=== PATIENT | male | born 1930 | race Caucasian/White ===

== ENCOUNTER 2016-09-03 23:43 | Inpatient (IN) | payer MEDICARE, MEDICAID ==
[~2016-09-03] VITALS: Ht 170.2 cm; Wt 87.6 kg
[2016-09-04 00:07] LABS: TEMPERATURE, FAHRENHEIT, BG 98.6 FAHREN (96.0-98.6)
[2016-09-04] MEDS ORDERED: ASPI81TA2 PO (00:13)
[2016-09-04] MEDS ORDERED: OLAN5TAB2 PO (00:13)
[2016-09-04] MEDS ORDERED: ZOLP10 PO (00:13)
[2016-09-04] MEDS ORDERED: BIFI1CAP PO (00:13)
[2016-09-04] MEDS ORDERED: METO-325 PO (00:13)
[2016-09-04] MEDS ORDERED: BUDE10.2 IH (00:13)
[2016-09-04] MEDS ORDERED: MOME17N NASAL (00:13)
[2016-09-04] MEDS ORDERED: ATOR40TA28 PO (00:13)
[2016-09-04] MEDS ORDERED: PANT40TA25 PO (00:13)
[2016-09-04] MEDS ORDERED: LACT30L PO (00:13)
[2016-09-04] MEDS ORDERED: PRED10 PO (00:13)
[2016-09-04] MEDS ORDERED: HYDR-3971 PO (00:13)
[2016-09-04] MEDS ORDERED: IPRNEB IH (00:13)
[2016-09-04] MEDS ORDERED: AMLO-512 PO (00:13)
[2016-09-04] MEDS ORDERED: MIRT15 PO (00:13)
[2016-09-04] MEDS ORDERED: BUME1TAB30 PO (00:13)
[2016-09-04] MEDS ORDERED: AZITH500IV IV (00:13)
[2016-09-04] MEDS ORDERED: POTA10TA14 PO (00:13)
[2016-09-04] MEDS ORDERED: PRAM15 PO (00:13)
[2016-09-04] MEDS ORDERED: PRED20 PO (00:13)
[2016-09-04] MEDS ORDERED: AUD NEB (00:13)
[2016-09-04] MEDS ORDERED: ALBUTEROL SULFATE 5 MG/ML 20 ML NEB SOLN [BULK] NEB ONE (00:15)
[2016-09-04] MEDS ORDERED: IPRATROPIUM BROMIDE 0.5 MG/2.5 ML NEB SOLUTION NEB ONE (00:15)
[2016-09-04] MEDS ORDERED: FUROSEMIDE 40 MG/4 ML VIAL IVP ONE (00:15)
[2016-09-04 00:21] LABS: ABG A-A DIFF O2 616.2 mmHg (10-20.0); ABG BASE EXCESS -0.8 mmol/L (-2.0-3.0); ABG HCO3 23.4 mmol/L (22.0-26.0); ABG OXYHEMOGLOBIN 74.4 % (94.0-100.0); ABG PCO2 50 mmHg (35-45); ABG PH 7.321 (7.35-7.450)
[2016-09-04 00:26] LABS: ALLEN TEST, BLOOD GAS Positive
[2016-09-04 00:27] LABS: IPAP, BG 12 cm H2O
[2016-09-04] MEDS ORDERED: 0.9% SODIUM CHLORIDE 5 ML NEB SOLUTION NEB ONE (00:37)
[2016-09-04 01:16] LABS: ALANINE AMINOTRANSFERASE 46 U/L (12-78); ALBUMIN 2.9 g/dL (3.4-5.0); ANION GAP 10 mmol/L (8-16); ASPARTATE AMINOTRANSFERASE 32 U/L (15-37); BILIRUBIN,TOTAL 0.7 mg/dL (0.1-1.0); CALCIUM, TOTAL 7.9 mg/dL (8.8-10.5); CARBON DIOXIDE 27 mmol/L (22-29); CHLORIDE 104 mmol/L (98-107); CREATININE 3.01 mg/dL (0.60-1.30); GLOMERULAR FILTR. RATE CALC 20 mL/min (>60); POTASSIUM 4.9 mmol/L (3.5-5.1); SODIUM SERUM 141 mmol/L (136-145); TOTAL PROTEIN, SERUM 5.7 g/dL (6.4-8.2)
[2016-09-04 01:24] LABS: EOSINOPHILS % (AUTO) 0 % (1.0-6.0); HEMATOCRIT 22.8 % (41-53); HEMOGLOBIN 7.4 g/dL (13.5-17.5); LYMPHOCYTES # (AUTO) 0.1 K/uL (1.0-4.8); LYMPHOCYTES % (AUTO) 0.7 % (22.0-44.0); MEAN CORPUSCULAR HEMOGLOBIN 28.8 pg (26.0-34.0); MEAN CORPUSCULAR HGB CONC 32.6 G/dL (31.0-37.0); MEAN CORPUSCULAR VOLUME 88 fL (80-100); MONOCYTES # (AUTO) 0.6 K/uL (0.1-1.0); PLATELET COUNT (AUTO) 134 K/uL (150-450); RED BLOOD CELL COUNT(AUTO) 2.58 MIL/uL (4.50-5.90); RED CELL DISTRIBUTION WIDTH 16.7 % (11.5-14.5); WHITE BLOOD COUNT (AUTO) 19.7 K/uL (4.5-11.0)
[2016-09-04 01:29] LABS: NEUTROPHILS % (AUTO) 96.3 % (40.0-70.0)
[2016-09-04 01:36] LABS: LACTIC ACID 2.4 mmol/L (0.4-2.0); UREA NITROGEN, BLOOD 131 mg/dL (7-18)
[2016-09-04] MEDS ORDERED: ONDANSETRON HCL 4 MG/2 ML VIAL IVP PRN ×2 (02:15→03:15)
[2016-09-04] MEDS ORDERED: ACETAMINOPHEN 325 MG TABLET PO PRN ×2 (02:15→03:15)
[2016-09-04] MEDS ORDERED: 0.9% SODIUM CHLORIDE 10 ML SYRINGE IVP PRN ×2 (02:15→03:15)
[2016-09-04 02:21] LABS: B-TYPE NATRIURETIC PEPTIDE 241 pg/mL (0-100)
[2016-09-04] MEDS ORDERED: ZOLPIDEM TARTRATE 10 MG TABLET PO PRN (03:00)
[2016-09-04] MEDS ORDERED: OLANZapine 5 MG TABLET PO PRN (03:00)
[2016-09-04] MEDS ORDERED: LACTULOSE 20 GM/30 ML SOLUTION UDCUP PO PRN (03:00)
[2016-09-04] MEDS: BUDESONIDE/FORMOTEROL FUMARATE 160-4.5 MCG/PUFF 6.9 GM INHALER IH SCH ×3 (03:00→21:24)
[2016-09-04] MEDS ORDERED: ALBUTEROL SULFATE 2.5 MG/0.5 ML NEB SOLUTION NEB PRN (03:15)
[2016-09-04] MEDS ORDERED: MAGNESIUM HYDROXIDE SUSPENSION 30 ML UDCUP PO PRN (03:15)
[2016-09-04] MEDS ORDERED: OxyCODONE HCL/ACETAMINOPHEN 5-325 MG TABLET PO PRN ×2 (03:15)
[2016-09-04] MEDS ORDERED: IPRATROPIUM BROMIDE 0.5 MG/2.5 ML NEB SOLUTION NEB PRN (03:15)
[2016-09-04 03:20] LABS: REFLEX LACTIC ACID? YES YES
[2016-09-04] MEDS ORDERED: ALBUMIN HUMAN 25%-25GM/100ML 100 ML IV ONE (03:30)
[2016-09-04] MEDS ORDERED: VANCOMYCIN HCL 1 GM/D5% WATER 200 ML IV PRN (03:30)
[2016-09-04] MEDS: MethylPREDNISolone SOD SUCC 125 MG/2 ML VIAL IVP SCH ×3 (03:39→16:23)
[2016-09-04 03:43] LABS: APPEARANCE,URINE CLEAR (CLEAR); GLUCOSE, URINE (UA) NEGATIVE (NEGATIVE); KETONES,URINE NEGATIVE (NEGATIVE); LEUKOCYTE ESTERASE ,URINE NEGATIVE (NEGATIVE); OCCULT BLOOD,URINE NEGATIVE (NEGATIVE); PROTEIN,URINE TRACE (NEGATIVE)
[2016-09-04] MEDS ORDERED: VANCOMYCIN HCL 1.5 GM in DEXTROSE 5%-WATER 250 ML IV ONE (04:00)
[2016-09-04] MEDS ORDERED: HALOPERIDOL LACTATE 5 MG/ML VIAL IM ONE (05:45)
[2016-09-04] MEDS: PIPERACILLIN SODIUM/TAZOBACTAM 2.25 GM in DEXTROSE 5%-WATER 50 ML IV SCH ×3 (06:07→18:46)
[2016-09-04] MEDS: ALBUTEROL SULFATE 2.5 MG/0.5 ML NEB SOLUTION NEB SCH ×5 (07:34→23:48)
[2016-09-04] MEDS: IPRATROPIUM BROMIDE 0.5 MG/2.5 ML NEB SOLUTION NEB SCH ×5 (07:34→23:47)
[2016-09-04 08:28] VITALS: BP 146/63
[2016-09-04] MEDS: AmLODIPine BESYLATE 10 MG TABLET PO SCH (09:00)
[2016-09-04] MEDS: PANTOPRAZOLE SODIUM 40 MG/VIAL IVP SCH (10:12)
[2016-09-04] MEDS: ASPIRIN 81 MG CHEWABLE TABLET PO SCH (10:12)
[2016-09-04] MEDS: BUMETANIDE 1 MG TABLET PO SCH (10:12)
[2016-09-04] MEDS: METOPROLOL SUCCINATE 50 MG ER TABLET PO SCH (10:13)
[2016-09-04] MEDS: ATORVASTATIN CALCIUM 40 MG TABLET PO SCH (10:13)
[2016-09-04] MEDS: DOCUSATE SODIUM 100 MG CAPSULE PO SCH ×2 (10:13→21:21)
[2016-09-04] MEDS ORDERED: SODIUM CHLORIDE 0.9% 100 ML ONE (11:37)
[2016-09-04 12:07] VITALS: BP 127/62
[2016-09-04] MEDS ORDERED: INFLUENZA VIRUS VACCINE QVS 2016-17 (3YR+)/PF 60 MCG/0.5 ML SYRINGE IM ONE (15:15)
[2016-09-04 15:41] VITALS: BP 150/57
[2016-09-04 17:58] LABS: INFLUENZA TYPE B NEGATIVE FOR TYPE B (NEGATIVE)
[2016-09-04 19:49] VITALS: BP 156/64
[2016-09-04 20:28] LABS: INR 1.1 (0.9-1.1); PROTHROMBIN TIME 12.1 SEC (9.4-11.6)
[2016-09-04] MEDS: HALOPERIDOL LACTATE 5 MG/ML VIAL IM PRN (21:19)
[2016-09-04] MEDS: MIRTAZAPINE 15 MG TABLET PO SCH (21:20)
[2016-09-04] MEDS: PRAMIPEXOLE DI-HCL 0.25 MG TABLET PO SCH (21:20)
[2016-09-04] MEDS ORDERED: LORazepam 2 MG/ML VIAL IVP ONE (22:30)
[2016-09-04 23:23] VITALS: BP 148/72
[2016-09-05] VITALS (13 sets, daily range): BP systolic 109–154; BP diastolic 45–94
[2016-09-05] MEDS: PIPERACILLIN SODIUM/TAZOBACTAM 2.25 GM in DEXTROSE 5%-WATER 50 ML IV SCH ×4 (00:42→17:47)
[2016-09-05] MEDS: MethylPREDNISolone SOD SUCC 125 MG/2 ML VIAL IVP SCH ×3 (00:42→16:46)
[2016-09-05] MEDS: IPRATROPIUM BROMIDE 0.5 MG/2.5 ML NEB SOLUTION NEB SCH ×6 (02:46→22:45)
[2016-09-05] MEDS: ALBUTEROL SULFATE 2.5 MG/0.5 ML NEB SOLUTION NEB SCH ×6 (02:47→22:45)
[2016-09-05] MEDS: LORazepam 2 MG/ML VIAL IVP PRN ×3 (03:05→19:38)
[2016-09-05 07:02] LABS: EOSINOPHILS % (AUTO) 0 % (1.0-6.0); LYMPHOCYTES # (AUTO) 0.1 K/uL (1.0-4.8); LYMPHOCYTES % (AUTO) 0.5 % (22.0-44.0); MEAN CORPUSCULAR HEMOGLOBIN 29.5 pg (26.0-34.0); MEAN CORPUSCULAR HGB CONC 33.4 G/dL (31.0-37.0); MEAN CORPUSCULAR VOLUME 88 fL (80-100); MONOCYTES % (AUTO) 0.2 % (2.0-9.0); NEUTROPHILS # (AUTO) 12.6 K/uL (1.8-7.7); PLATELET COUNT (AUTO) 93 K/uL (150-450); RED BLOOD CELL COUNT(AUTO) 2.03 MIL/uL (4.50-5.90); WHITE BLOOD COUNT (AUTO) 12.6 K/uL (4.5-11.0)
[2016-09-05 07:17] LABS: ALBUMIN 2.7 g/dL (3.4-5.0); BILIRUBIN,TOTAL 0.6 mg/dL (0.1-1.0); CALCIUM, TOTAL 7.7 mg/dL (8.8-10.5); CREATININE 3.57 mg/dL (0.60-1.30); MAGNESIUM 3.2 mg/dL (1.80-2.40); POTASSIUM 5.4 mmol/L (3.5-5.1); TOTAL PROTEIN, SERUM 5.1 g/dL (6.4-8.2)
[2016-09-05 07:25] LABS: HEMATOCRIT 17.9 % (41-53); NEUTROPHILS % (AUTO) 99.3 % (40.0-70.0)
[2016-09-05 07:26] LABS: RBC MORPHOLOGY COMMENT ABNORMAL RBC MORPH
[2016-09-05] MEDS ORDERED: VANCOMYCIN HCL 1.5 GM in DEXTROSE 5%-WATER 250 ML IV ONE (08:00)
[2016-09-05] MEDS ORDERED: FUROSEMIDE 40 MG/4 ML VIAL IVP ONE (08:00)
[2016-09-05] MEDS: AmLODIPine BESYLATE 10 MG TABLET PO SCH (08:23)
[2016-09-05] MEDS: BUDESONIDE/FORMOTEROL FUMARATE 160-4.5 MCG/PUFF 6.9 GM INHALER IH SCH ×2 (08:34→21:00)
[2016-09-05] MEDS: PANTOPRAZOLE SODIUM 40 MG/VIAL IVP SCH (08:34)
[2016-09-05] MEDS: BUMETANIDE 1 MG TABLET PO SCH (09:00)
[2016-09-05] MEDS: ATORVASTATIN CALCIUM 40 MG TABLET PO SCH (09:00)
[2016-09-05] MEDS: DOCUSATE SODIUM 100 MG CAPSULE PO SCH ×2 (09:00→21:00)
[2016-09-05] MEDS: METOPROLOL SUCCINATE 50 MG ER TABLET PO SCH (09:00)
[2016-09-05] MEDS: ASPIRIN 81 MG CHEWABLE TABLET PO SCH (09:00)
[2016-09-05] MEDS: HALOPERIDOL LACTATE 5 MG/ML VIAL IM PRN (09:38)
[2016-09-05] MEDS ORDERED: SODIUM CHLORIDE 0.9% 250 ML IV ONE ×2 (12:41→12:42)
[2016-09-05] MEDS ORDERED: MORPHINE SULFATE 100 MG/NS/PF 100 ML IV PRN (20:06)
[2016-09-05] MEDS ORDERED: KDUR20 PO (20:14)
[2016-09-05] MEDS ORDERED: DiphenhydrAMINE HCL 50 MG/ML VIAL IVP PRN (20:15)
[2016-09-05] MEDS: PRAMIPEXOLE DI-HCL 0.25 MG TABLET PO SCH (21:00)
[2016-09-05] MEDS: MIRTAZAPINE 15 MG TABLET PO SCH (21:00)
[2016-09-06] MEDS: PIPERACILLIN SODIUM/TAZOBACTAM 2.25 GM in DEXTROSE 5%-WATER 50 ML IV SCH ×5 (00:47→23:21)
[2016-09-06] MEDS: MethylPREDNISolone SOD SUCC 125 MG/2 ML VIAL IVP SCH ×4 (00:48→23:22)
[2016-09-06] MEDS: IPRATROPIUM BROMIDE 0.5 MG/2.5 ML NEB SOLUTION NEB SCH ×5 (03:12→19:37)
[2016-09-06] MEDS: ALBUTEROL SULFATE 2.5 MG/0.5 ML NEB SOLUTION NEB SCH ×5 (03:12→19:37)
[2016-09-06 04:27] VITALS: BP 126/45
[2016-09-06 08:26] VITALS: BP 98/48
[2016-09-06] MEDS: BUDESONIDE/FORMOTEROL FUMARATE 160-4.5 MCG/PUFF 6.9 GM INHALER IH SCH (08:35)
[2016-09-06] MEDS: PANTOPRAZOLE SODIUM 40 MG/VIAL IVP SCH (08:36)
[2016-09-06] MEDS: BUMETANIDE 1 MG TABLET PO SCH (08:53)
[2016-09-06] MEDS: ASPIRIN 81 MG CHEWABLE TABLET PO SCH (08:53)
[2016-09-06] MEDS: DOCUSATE SODIUM 100 MG CAPSULE PO SCH (08:53)
[2016-09-06] MEDS: ATORVASTATIN CALCIUM 40 MG TABLET PO SCH (08:54)
[2016-09-06] MEDS: METOPROLOL SUCCINATE 50 MG ER TABLET PO SCH (08:54)
[2016-09-06] MEDS: AmLODIPine BESYLATE 10 MG TABLET PO SCH (08:54)
[2016-09-06 09:44] LABS: CALCIUM, TOTAL 7.7 mg/dL (8.8-10.5); CREATININE 4.31 mg/dL (0.60-1.30)
[2016-09-06 10:02] LABS: POTASSIUM 6.4 mmol/L (3.5-5.1)
[2016-09-06] MEDS ORDERED: BUMETANIDE 0.25 MG/ML 10 ML VIAL IVP ONE (10:30)
[2016-09-06 11:42] VITALS: BP 115/93
[2016-09-06] MEDS ORDERED: 0.9% SODIUM CHLORIDE 15 ML NEB SOLUTION NEB ONE (12:00)
[2016-09-06] MEDS: HUMAN IV SCH ×2 (12:48)
[2016-09-06] MEDS: INSULIN REGULAR IV SCH ×2 (12:48)
[2016-09-06] MEDS: SODIUM CHL IV SCH ×2 (12:48)
[2016-09-06] MEDS: DEXTROSE IV SCH ×2 (12:48)
[2016-09-06 16:16] VITALS: BP 118/64
[2016-09-06 17:27] LABS: GLUCOSE,POINT OF CARE 74 MG/DL (70-110)
[2016-09-06 17:27] LABS: GLUCOSE,POINT OF CARE 110 MG/DL (70-110)
[2016-09-06] MEDS: LORazepam 2 MG/ML VIAL IVP PRN (18:43)
[2016-09-06 20:00] VITALS: BP 110/40
[2016-09-06] MEDS ORDERED: BISACODYL 10 MG RECTAL RECTAL SUPPOSITORY PR PRN (20:00)
[2016-09-06] MEDS ORDERED: MORPHINE SULFATE 10 MG/ML SYRINGE IVP PRN ×3 (21:30)
[2016-09-06 22:58] VITALS: BP 100/42
[2016-09-07] VITALS (23 sets, daily range): BP systolic 60–103; BP diastolic 23–42
[2016-09-07] MEDS: PIPERACILLIN SODIUM/TAZOBACTAM 2.25 GM in DEXTROSE 5%-WATER 50 ML IV SCH ×2 (06:00→12:00)
[2016-09-07] MEDS: SODIUM CHL IV SCH ×2 (06:31)
[2016-09-07] MEDS: DEXTROSE IV SCH ×2 (06:31)
[2016-09-07] MEDS: INSULIN REGULAR IV SCH ×2 (06:31)
[2016-09-07] MEDS: HUMAN IV SCH ×2 (06:31)
[2016-09-07] MEDS: MethylPREDNISolone SOD SUCC 125 MG/2 ML VIAL IVP SCH (08:00)
[2016-09-07] MEDS: PANTOPRAZOLE SODIUM 40 MG/VIAL IVP SCH (09:00)
[2016-09-07 12:20] LABS: ORGANISM ID Not indicated.
[2016-09-07 21:57] LABS: GLUCOSE,POINT OF CARE 97 MG/DL (70-110)
[2016-09-07 21:57] LABS: GLUCOSE,POINT OF CARE 59 MG/DL (70-110)
[2016-09-15 11:48] LABS: GLUCOSE,POINT OF CARE 84 MG/DL (70-110)
[2016-09-15 11:48] LABS: GLUCOSE,POINT OF CARE 83 MG/DL (70-110)
[2016-09-15 11:48] LABS: GLUCOSE COMMENT 1 Doctor Notified; GLUCOSE,POINT OF CARE 61 MG/DL (70-110)
[2016-09-15 11:48] LABS: GLUCOSE,POINT OF CARE 79 MG/DL (70-110)
== END 2016-09-07 16:55 | disposition expired | DRG 871 ==
LOC: EMS 23:45 → 5N 09-04 02:13
PROVIDERS: ADMIT Internal Medicine; ATTEND Internal Medicine
PROC: 30233N1 Transfusion of Nonautologous Red Blood Cells into Peripheral Vein, Percutaneous Approach (ICD-10-PCS; principal; 2016-09-04)
PROC: 5A09557 Assistance with Respiratory Ventilation, Greater than 96 Consecutive Hours, Continuous Positive Airway Pressure (ICD-10-PCS; 2016-09-05)
DX: A41.9 Sepsis, unspecified organism (principal); J96.21 Acute and chronic respiratory failure with hypoxia; J18.9 Pneumonia, unspecified organism; E43 Unspecified severe protein-calorie malnutrition; I50.33 Acute on chronic diastolic (congestive) heart failure; J96.22 Acute and chronic respiratory failure with hypercapnia; N17.9 Acute kidney failure, unspecified; J44.1 Chronic obstructive pulmonary disease with (acute) exacerbation; J44.0 Chronic obstructive pulmonary disease with (acute) lower respiratory infection; K92.2 Gastrointestinal hemorrhage, unspecified; R04.2 Hemoptysis; I25.10 Atherosclerotic heart disease of native coronary artery without angina pectoris; N40.0 Benign prostatic hyperplasia without lower urinary tract symptoms; Z51.5 Encounter for palliative care; N18.3 Chronic kidney disease, stage 3 (moderate); I13.10 Hypertensive heart and chronic kidney disease without heart failure, with stage 1 through stage 4 chronic kidney disease, or unspecified chronic kidney disease; I48.0 Paroxysmal atrial fibrillation; I35.0 Nonrheumatic aortic (valve) stenosis; G20 Parkinson's disease; F03.90 Unspecified dementia, unspecified severity, without behavioral disturbance, psychotic disturbance, mood disturbance, and anxiety; E87.5 Hyperkalemia; E78.5 Hyperlipidemia, unspecified; D63.8 Anemia in other chronic diseases classified elsewhere; I34.0 Nonrheumatic mitral (valve) insufficiency; I49.9 Cardiac arrhythmia, unspecified; Z99.81 Dependence on supplemental oxygen; Z90.79 Acquired absence of other genital organ(s); Z95.5 Presence of coronary angioplasty implant and graft; Z87.891 Personal history of nicotine dependence; Z86.718 Personal history of other venous thrombosis and embolism; Z87.01 Personal history of pneumonia (recurrent); Z98.890 Other specified postprocedural states; Z68.30 Body mass index [BMI] 30.0-30.9, adult
CPT/HCPCS: 51702; 71250; 82805; 82962; 83540; 83550; 83605; 83735; 84145; 86480; 86850; 86900; 86901; 86920; 87015; 87040; 87081; 87086; 87149; 87153; 87449; 87804; 87899; 93005; 93306; 93925; 94640; 94660; 96365; 96366; 96367; 96372; 96375; 99291; C9113; J1630; J1815; J1940; J2060; J2270; J2543; J2930; J3370; J3490; J7050; J7060; P9016; P9046